=== PATIENT | female | born 1995 | race Two or more races ===

== ENCOUNTER 2023-11-17 12:37 | Outpatient (CLI) | payer OTHER | END 2023-11-17 12:52 | disposition home or self-care (01) | LOC: PRENATAL 12:37 | PROVIDERS: ATTEND Obstetrics & Gynecology Maternal & Fetal Medicine | DX: O36.80X0 Pregnancy with inconclusive fetal viability, not applicable or unspecified (principal); Z36.82 Encounter for antenatal screening for nuchal translucency; Z36.9 Encounter for antenatal screening, unspecified; Z14.8 Genetic carrier of other disease; Z3A.13 13 weeks gestation of pregnancy ==

== ENCOUNTER → 2024-01-04 12:31 | Outpatient (CLI) | payer OTHER | END | disposition home or self-care (01) | LOC: PRENATAL 12:31 | PROVIDERS: ATTEND Obstetrics & Gynecology Maternal & Fetal Medicine | DX: O35.9XX0 Maternal care for (suspected) fetal abnormality and damage, unspecified, not applicable or unspecified (principal); O35.3XX0 Maternal care for (suspected) damage to fetus from viral disease in mother, not applicable or unspecified; O44.00 Complete placenta previa NOS or without hemorrhage, unspecified trimester; Z3A.20 20 weeks gestation of pregnancy ==

== ENCOUNTER 2024-04-27 13:49 | Outpatient (CLI) | payer OTHER ==
[~2024-04-27] VITALS: Ht 154.9 cm; Wt 63.5 kg
[2024-04-27] MEDS ORDERED: RINGERS SOLUTION,LACTATED 1,000 ML IV SCH (15:00)
[2024-04-27 15:15] LABS: URINE APPEARANCE Clear; URINE BILIRRUBIN Negative (NEGATIVE); URINE BLOOD Negative; URINE COLOR Yellow; URINE GLUCOSE Negative (NEGATIVE); URINE LEUKOCYTE Negative; URINE NITRATE Negative; URINE PROTEIN Negative (NEGATIVE)
[2024-04-27 15:19] LABS: URINE BACTERIA 66.7 uL (0.0-1933); URINE RBC 2.2 uL (0.0-20.8); URINE WBC 2.4 uL (0.0-23.2)
[2024-04-27 15:27] LABS: HEMATOCRIT 30.3 % (36.0-45.00); HEMOGLOBIN 10.1 g/dL (12.0-15.00); MEAN CELL VOLUME 83.7 fL (80.00-100.00); MEAN CORPUSCULAR HEMOGLOBIN 27.8 pg (27.00-32.0); MEAN CORPUSCULAR HGB CONC 33.2 g/dl (32.0-36.0); PLATELET COUNT 270 K/uL (150-450); RED BLOOD COUNT 3.61 M/uL (4.00-6.00)
[2024-04-27 15:39] LABS: INR < 0.93; PARTIAL THROMBOPLASTIN TIME 27.2 SECONDS (22.0-34.0); PROTHROMBIN TIME 9.6 SECONDS (9.0-11.5)
[2024-04-27 16:01] LABS: ALBUMIN 2.6 gm/dL (3.4-5.0); BILIRUBIN TOTAL 0.31 mg/dL (0.3-1.2); CALCIUM 9.3 mg/dL (8.5-10.1); CREATININE SERUM 0.55 mg/dL (0.55-1.02); GFR 131.61; GLOBULINA 4.1 G/DL (2.4-3.5); POTASSIUM 4.21 mEq/L (3.5-5.1); TOTAL PROTEIN 6.7 gm/dL (6.4-8.2)
[2024-04-27] MEDS ORDERED: DIPHENHYDRAMINE HCL 25 MG CAPSULE PO PRN (16:15)
[2024-04-27] MEDS ORDERED: URSODIOL 300 MG CAPSULE PO SCH (17:00)
[2024-04-27] MEDS ORDERED: BETAMETHASONE ACETATE,SOD PHOS 30 MG/5 ML ML ONE (17:53)
[2024-04-27] MEDS ORDERED: BETAMETHASONE ACETATE,SOD PHOS 30 MG/5 ML ML IM SCH (18:00)
[2024-04-27] MEDS ORDERED: AMPICILLIN SODIUM 2,000 MG VIAL IV ONE (23:15)
[2024-04-28] MEDS ORDERED: AMPICILLIN SODIUM 1,000 MG VIAL IV SCH (04:00)
[2024-04-28] MEDS ORDERED: SOD FERRIC GLUC COMPLX/SUCROSE 62.5 MG/5 ML AMPUL IV NR (12:45)
[2024-04-28] MEDS ORDERED: BETAMETHASONE ACETATE,SOD PHOS 30 MG/5 ML ML IM NR (16:00)
[2024-04-28] MEDS ORDERED: BETAMETHASONE ACETATE,SOD PHOS 30 MG/5 ML ML ONE (16:29)
== END 2024-04-28 17:45 | disposition home or self-care (01) ==
LOC: OBS/DEL 13:49
PROVIDERS: ATTEND General Practice
DX: O26.643 Intrahepatic cholestasis of pregnancy, third trimester (principal); O99.013 Anemia complicating pregnancy, third trimester; Z3A.36 36 weeks gestation of pregnancy; O26.849 Uterine size-date discrepancy, unspecified trimester; O36.8199 Decreased fetal movements, unspecified trimester, other fetus; O99.891 Other specified diseases and conditions complicating pregnancy

== ENCOUNTER 2024-05-04 11:13 | Inpatient (IN) | payer OTHER ==
[~2024-05-04] VITALS: Ht 154.9 cm; Wt 64.9 kg
[2024-05-04] MEDS ORDERED: PRENATABS RX T1 EACH PO (11:44)
[2024-05-04] MEDS ORDERED: FE C TABLET1 EACH PO (11:44)
[2024-05-04] MEDS ORDERED: MISOPROSTOL 50 MCG TABLET VAG NR (12:15)
[2024-05-04 12:27] LABS: URINE APPEARANCE Cloudy; URINE BILIRRUBIN Negative (NEGATIVE); URINE BLOOD Negative; URINE COLOR Yellow; URINE GLUCOSE Negative (NEGATIVE); URINE LEUKOCYTE Moderate; URINE NITRATE Negative; URINE PROTEIN Negative (NEGATIVE); URINE UROBILINOGEN 0.2 E.U./dl
[2024-05-04 12:31] LABS: URINE BACTERIA 1778.8 uL (0.0-1933); URINE EPITHELIAL CELLS 134.3 uL (0.0-38.8); URINE RBC 9.6 uL (0.0-20.8); URINE WBC 36.1 uL (0.0-23.2)
[2024-05-04 12:53] LABS: INR < 0.93; PARTIAL THROMBOPLASTIN TIME 26.7 SECONDS (22.0-34.0); PROTHROMBIN TIME 9.6 SECONDS (9.0-11.5)
[2024-05-04 12:54] LABS: HEMATOCRIT 31.3 % (36.0-45.00); HEMOGLOBIN 10.5 g/dL (12.0-15.00); MEAN CORPUSCULAR HEMOGLOBIN 29.1 pg (27.00-32.0); MEAN CORPUSCULAR HGB CONC 33.5 g/dl (32.0-36.0); PLATELET COUNT 185 K/uL (150-450); RED CELL DISTRIBUTION WIDTH 22.6 % (11.5-14.5)
[2024-05-04 12:58] LABS: ALBUMIN 2.5 gm/dL (3.4-5.0); BILIRUBIN TOTAL 0.32 mg/dL (0.3-1.2); CREATININE SERUM 0.59 mg/dL (0.55-1.02); GFR 121.37; GLOBULINA 4.1 G/DL (2.4-3.5); POTASSIUM 3.63 mEq/L (3.5-5.1); TOTAL PROTEIN 6.6 gm/dL (6.4-8.2)
[2024-05-05] MEDS ORDERED: MAGNESIUM SULFATE IN WATER 4 GM/100 ML PIGGYBACK IV ONE (08:00)
[2024-05-05] MEDS ORDERED: CEFAZOLIN SODIUM 1,000 MG VIAL IV ONE (08:00)
[2024-05-05] MEDS ORDERED: LABETALOL HCL 20MG/4ML SYRINGE IV ONE (08:00)
[2024-05-05] MEDS ORDERED: KETOROLAC TROMETHAMINE 30 MG VIAL IV SCH ×2 (09:44→21:00)
[2024-05-05] MEDS ORDERED: MEPERIDINE HCL/PF 25 MG/ML VIAL IV PRN (09:45)
[2024-05-05] MEDS ORDERED: PROMETHAZINE HCL 25 MG/ML AMPUL IV PRN (09:45)
[2024-05-05] MEDS ORDERED: RINGERS SOLUTION,LACTATED 1,000 ML IV SCH (09:45)
[2024-05-05] MEDS ORDERED: FAMOTIDINE/PF 20 MG/2 ML VIAL IV SCH (09:45)
[2024-05-05] MEDS ORDERED: OXYTOCIN 1,000 ML IV SCH (09:45)
[2024-05-05] MEDS ORDERED: CHLORHEXIDINE GLUCONATE 120 ML BOTTLE TOP NR (09:45)
[2024-05-05] MEDS ORDERED: ERYTHROMYCIN BASE 1 GM TUBE OP NR (09:45)
[2024-05-05] MEDS ORDERED: MAGNESIUM SULFATE IN WATER 500 ML IV SCH (10:00)
[2024-05-05] MEDS ORDERED: ONDANSETRON HCL 2 MG/ML VIAL IV PRN (10:00)
[2024-05-05] MEDS ORDERED: OXYTOCIN 10 UNITS/ML VIAL IV ONE (10:45)
[2024-05-05 14:25] LABS: HEMOGLOBIN 10.7 g/dL (12.0-15.00); MEAN CELL VOLUME 85.5 fL (80.00-100.00); MEAN CORPUSCULAR HEMOGLOBIN 28.6 pg (27.00-32.0); MEAN CORPUSCULAR HGB CONC 33.4 g/dl (32.0-36.0); PLATELET COUNT 178 K/uL (150-450); RED BLOOD COUNT 3.74 M/uL (4.00-6.00); RED CELL DISTRIBUTION WIDTH 22.8 % (11.5-14.5)
[2024-05-05 14:46] LABS: ALBUMIN 2.3 gm/dL (3.4-5.0); BILIRUBIN TOTAL 0.58 mg/dL (0.3-1.2); CALCIUM 8.6 mg/dL (8.5-10.1); CREATININE SERUM 0.47 mg/dL (0.55-1.02); GFR 157.78; GLOBULINA 3.5 G/DL (2.4-3.5); TOTAL PROTEIN 5.8 gm/dL (6.4-8.2)
[2024-05-05 14:51] LABS: MAGNESIUM 4.7 mg/dL (1.8-2.4)
[2024-05-05] MEDS ORDERED: LABETALOL HCL 100 MG TABLET PO SCH (17:00)
[2024-05-05 20:45] LABS: HEMOGLOBIN 10.7 g/dL (12.0-15.00); MEAN CELL VOLUME 86.9 fL (80.00-100.00); MEAN CORPUSCULAR HEMOGLOBIN 28.9 pg (27.00-32.0); MEAN CORPUSCULAR HGB CONC 33.3 g/dl (32.0-36.0); PLATELET COUNT 179 K/uL (150-450); RED BLOOD COUNT 3.69 M/uL (4.00-6.00); RED CELL DISTRIBUTION WIDTH 23.4 % (11.5-14.5)
[2024-05-05 21:01] LABS: ALBUMIN 2.1 gm/dL (3.4-5.0); BILIRUBIN TOTAL 0.54 mg/dL (0.3-1.2); CALCIUM 8.3 mg/dL (8.5-10.1); CREATININE SERUM 0.6 mg/dL (0.55-1.02); GFR 119.04; GLOBULINA 3.5 G/DL (2.4-3.5); POTASSIUM 3.64 mEq/L (3.5-5.1); TOTAL PROTEIN 5.6 gm/dL (6.4-8.2)
[2024-05-06] MEDS ORDERED: IBUprofen 800 MG TABLET PO PRN (10:30)
[2024-05-06] MEDS ORDERED: SIMETHICONE 125 MG CAPSULE PO SCH (10:30)
[2024-05-06] MEDS ORDERED: OxyCODONE HCL/APAP UD (PERCOCET) PO PRN (10:30)
[2024-05-06] MEDS ORDERED: DOCUSATE SODIUM 100MG CAP PO SCH (10:30)
[2024-05-06] MEDS ORDERED: FF) RHO(D) IMMUNE GLOBULIN (POM) IM ONE (15:15)
[2024-05-07] MEDS ORDERED: MEASLES,MUMPS,RUBELLA VACC/PF 1 VIAL VIAL SUBCUTANEO NR (12:00)
== END 2024-05-08 12:44 | disposition home or self-care (01) | DRG 786 ==
LOC: LDR 11:13 → O/R 05-05 10:28 → LDR 05-05 14:31 → OB/GYN 05-06 10:40
PROVIDERS: ADMIT General Practice; ATTEND General Practice
PROC: 3E0P7VZ Introduction of Hormone into Female Reproductive, Via Natural or Artificial Opening (ICD-10-PCS; 2024-05-04)
PROC: 4A1HXCZ Monitoring of Products of Conception, Cardiac Rate, External Approach (ICD-10-PCS; 2024-05-04)
PROC: 3E033VJ Introduction of Other Hormone into Peripheral Vein, Percutaneous Approach (ICD-10-PCS; 2024-05-05)
PROC: 10D00Z1 Extraction of Products of Conception, Low, Open Approach (ICD-10-PCS; principal; 2024-05-05 08:30)
DX: O61.0 Failed medical induction of labor (principal); K83.1 Obstruction of bile duct; O26.643 Intrahepatic cholestasis of pregnancy, third trimester; O13.4 Gestational [pregnancy-induced] hypertension without significant proteinuria, complicating childbirth; O76 Abnormality in fetal heart rate and rhythm complicating labor and delivery; Z3A.37 37 weeks gestation of pregnancy; Z37.0 Single live birth; Z20.822 Contact with and (suspected) exposure to COVID-19